=== PATIENT | male | born 2000 | race Two or more races ===

== ENCOUNTER 2024-12-30 05:47 | Emergency (ER) | payer OTHER ==
[~2024-12-30] VITALS: Ht 177.8 cm; Wt 63.5 kg
[2024-12-30] MEDS: IPRATROPIUM NEB FS 0.5 MG/2.5 ML AMPUL.NEB NEB ONE (06:21)
[2024-12-30] MEDS: ALBUTEROL FS 2.5 MG/3 ML VIAL.NEB CONTNEB ONE (06:21)
[2024-12-30] MEDS ORDERED: predniSONE 20 MG TABLET ONE (06:22)
[2024-12-30] MEDS ORDERED: ALBUTEROL FS 2.5 MG/3 ML VIAL.NEB ONE (06:25)
[2024-12-30] MEDS: predniSONE 20 MG TABLET PO ONE (06:25)
[2024-12-30] MEDS ORDERED: IPRATROPIUM NEB FS 0.5 MG/2.5 ML AMPUL.NEB ONE (06:25)
[2024-12-30 06:26] VITALS: O2SAT 100
[2024-12-30 07:10] VITALS: O2SAT 100
[2024-12-30] MEDS ORDERED: BUDE10.2 INH (07:13)
[2024-12-30] MEDS ORDERED: PRED50TA PO (07:13)
[2024-12-30] MEDS ORDERED: ALBU18HF2 INH (07:13)
[2024-12-30 07:16] VITALS: BP 129/81; TEMP 98.7; O2SAT 100
== END 2024-12-30 07:16 | disposition home or self-care (01) ==
LOC: ER 05:49
DX: J45.909 Unspecified asthma, uncomplicated (principal); R07.89 Other chest pain; R05.9 Cough, unspecified
CPT/HCPCS: 99283; 94640; J7512